=== PATIENT | female | born 1985 | race Two or more races ===

== ENCOUNTER 2021-04-14 14:54 | Emergency (ER) | payer MEDICAID, OTHER ==
[~2021-04-14] VITALS: Ht 157.5 cm; Wt 93.0 kg
[2021-04-14] MEDS ORDERED: IBUPROFEN 800 MG TAB PO ONE (16:15)
== END 2021-04-14 16:25 | disposition home or self-care (01) ==
LOC: ER 14:54
DX: S86.911A Strain of unspecified muscle(s) and tendon(s) at lower leg level, right leg, initial encounter (principal); X58.XXXA Exposure to other specified factors, initial encounter; Y93.01 Activity, walking, marching and hiking; Y92.89 Other specified places as the place of occurrence of the external cause; Y99.8 Other external cause status
CPT/HCPCS: 93971

== ENCOUNTER 2024-06-21 15:22 | Emergency (ER) | payer MEDICAID, OTHER ==
[~2024-06-21] VITALS: Ht 157.5 cm; Wt 111.3 kg
[2024-06-21] MEDS: methylPREDNISolone SOD SUCC 125 MG/2 ML VL IV ONE (15:39)
[2024-06-21] MEDS: diphenhdrAMINE HCL 50 MG/1 ML VL IV ONE (15:39)
[2024-06-21] MEDS ORDERED: DIPH25CA66 PO (17:41)
[2024-06-21 17:49] VITALS: BP 123/82; PULSE 76; RESP 16; TEMP 98.8; O2SAT 98
== END 2024-06-21 17:55 | disposition home or self-care (01) ==
LOC: ER 15:22
DX: T78.3XXA Angioneurotic edema, initial encounter (principal); E66.01 Morbid (severe) obesity due to excess calories; Z68.41 Body mass index [BMI] 40.0-44.9, adult
CPT/HCPCS: 96374; 96375; 99284; J1200; J2919